=== PATIENT | male | born 1980 | race Caucasian/White ===

== ENCOUNTER → 2017-01-24 | Outpatient (CLI) | payer BC ==
[2017-01-24 18:32] LABS: CHOLESTEROL/HDL RATIO 5.3
== END | disposition home or self-care (01) ==
LOC: C.LABMFLN 12:54
PROVIDERS: ATTEND Family Medicine
DX: Z13.1 Encounter for screening for diabetes mellitus (principal); Z13.220 Encounter for screening for lipoid disorders; Z29.9 Encounter for prophylactic measures, unspecified